=== PATIENT | male | born 1965 | race African-American/Black ===

== ENCOUNTER 2017-07-24 10:25 | Emergency (ER) | payer MEDICAID ==
[~2017-07-24] VITALS: Ht 188 cm; Wt 81.8 kg
[~2017-07-24 10:25] MED LIST: LISI-662 PO; hctz PO
[2017-07-24] MEDS ORDERED: FURO20 PO (10:47)
[2017-07-24] MEDS ORDERED: METF500T4 PO (10:47)
[2017-07-24] MEDS ORDERED: FERR324T7 PO (10:47)
[2017-07-24] MEDS ORDERED: GABA-531 PO (10:47)
[2017-07-24] MEDS ORDERED: SPIR50 PO (10:47)
[2017-07-24] MEDS ORDERED: LACT30L PO (10:47)
[2017-07-24 10:48] LABS: GLUCOSE,POINT OF CARE 92 MG/DL (70-110)
[2017-07-24 13:30] VITALS: BP 118/75
== END 2017-07-24 14:16 | disposition home or self-care (01) ==
LOC: EMS 10:26
DX: K70.9 Alcoholic liver disease, unspecified (principal); I10 Essential (primary) hypertension; R21 Rash and other nonspecific skin eruption; F17.210 Nicotine dependence, cigarettes, uncomplicated; D17.0 Benign lipomatous neoplasm of skin and subcutaneous tissue of head, face and neck; E11.9 Type 2 diabetes mellitus without complications
CPT/HCPCS: 82962; 99283; 99406